=== PATIENT | female | born 1935 | race Caucasian/White ===

== ENCOUNTER → 2018-04-19 | Outpatient (CLI) | payer OTHER, MEDICARE ==
[~2018-04-19] VITALS: Ht 170.2 cm; Wt 63.5 kg
[~2018-04-19] MED LIST: AZOPT OPHTH1 %/10 M1; CALCIUM 500 +1 EAC5; COSOPT PF EYE1 EACH OPHTHALMIC; FISH OIL 1,001000 M2 PO; FISHOIL; GLUCOSAMINE CH1 EAC7 PO; GLUCOSAMINE HC500 MG; LIPITOR 20 MG T20 M1 PO; LUMIGAN2.5 M1 OP; NORVASC2.5 MG PO; OCUVITE SOFTGE1 EAC1 PO; TRAVATAN 0.004%5 ML; TUMS CHEWA500 MG/11; VITAMIN D1000 UNI1 PO; ZOCOR 20 MG TAB20 M1
--- NOTE | ~2018-04-19 | P ---
[facility] [place] [address] PROCEDURE REPORT Name: HARRY MORENO Room #: REG [facility]#: [id number] Admission: 04/19/18 Attend Phys: Miguel Lai Discharge: Date of : 39 Report #: [id number] THIS REPORT FOR: //name// CC: Miguel Shabazz MD DATE OF SERVICE: 04/19/2018 PROCEDURE PERFORMED: Colonoscopy. HISTORY OF PRESENT ILLNESS: The patient is an 83-year-old female with a history of colon polyps 10 years ago, here for routine followup. She also has a family history of colon cancer in her father. She denies any symptoms. DESCRIPTION OF PROCEDURE: The risks and benefits of the procedure were explained to the patient, those risks including but not limited to bleeding, perforation, and the risk of sedation. She understood these risks and gave informed consent. Sedation was given using propofol per anesthesia. Next, a digital rectal exam was initially performed, which was normal. Next, using a standard Olympus colonoscope, the scope was placed in the patient's anus and advanced under direct vision to the cecum. The overall prep was excellent. The cecum and ileocecal valve were normal in appearance. The ascending, transverse, descending and sigmoid colon were all normal. The rectal mucosa was normal. On retroflexion, small nonbleeding internal hemorrhoids were noted. Otherwise, normal colonoscopy. The scope was then withdrawn and the procedure terminated. The patient tolerated the procedure well. IMPRESSION: 1. Small internal hemorrhoids. 2. Otherwise, normal colonoscopy. RECOMMENDATIONS: No further colonoscopy is needed due to the patient's age. Thank you for allowing me to participate in her care. <ELECTRONICALLY SIGNED> By: Miguel Osman MD 04/19/18 1229 0938 1021 Miguel Osman MD /nt
== END | disposition home or self-care (01) ==
LOC: GI 07:31
DX: Z12.11 Encounter for screening for malignant neoplasm of colon (principal); K64.8 Other hemorrhoids; Z86.010 Personal history of colon polyps; Z80.0 Family history of malignant neoplasm of digestive organs; I10 Essential (primary) hypertension; E78.5 Hyperlipidemia, unspecified; Z98.41 Cataract extraction status, right eye; Z98.42 Cataract extraction status, left eye; Z98.890 Other specified postprocedural states; Z79.899 Other long term (current) drug therapy
CPT/HCPCS: 62110; 62900

== ENCOUNTER → 2018-05-17 | Outpatient (CLI) | payer OTHER, MEDICARE | LOC: NUC 13:18 | DX: Z12.31 Encounter for screening mammogram for malignant neoplasm of breast (principal); M81.0 Age-related osteoporosis without current pathological fracture; Z78.0 Asymptomatic menopausal state ==

== ENCOUNTER → 2018-05-25 | Outpatient (CLI) | payer OTHER, MEDICARE | LOC: RAD 00:34 | DX: N63.11 Unspecified lump in the right breast, upper outer quadrant (principal); R92.2 Inconclusive mammogram; N64.89 Other specified disorders of breast ==

== ENCOUNTER → 2018-06-01 | Outpatient (CLI) | payer OTHER, MEDICARE ==
--- NOTE | ~2018-06-01 | PATH ---
Formerly [facility] [address] [place] [address] PATHOLOGY RPT PROCEDURE Name: TIFFANIEHARRY Eileen Room #: REG MEL Mustafa#: [id number] Admission: 06/01/18 Date of : 39 Discharge: Report #: [id number] Path Case #: [id number] [facility] Accession Number: [id number] . 01 Material submitted: . RIGHT BREAST MASS 1100 2CM . 01 Clinician provided ICD-10: N63.10 . 01 Clinical history: . Breast mass . 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 . (SHA:at;06/03/2018) QTA/06/03/2018 . 02 Comment: This case was also reviewed by Dr. Charis Renteria. Suggest clinical correlation as only block A3 revealed the lesion; block A1 and A2 reveal only fat. The biopsy may not be access representative. (SHA:at;06/03/2018) . 02 Electronically signed: . Micheal Pruett MD, Pathologist NPI- [id number] . 01 Gross description: . Received in formalin labeled "Harry Ware, right breast 11:00 2 cm," are multiple needle cores of yellow-rizo fibrofatty tissue measuring 2.1 x 1.7 x 0.6 cm in aggregate dimensions. The tissue submitted in its entirety in cassette A1 through A3. The cold ischemic time is 5 minutes. The total formalin fixation time is 32 hours and 30 minutes. (TSD; 06/01/2018) TOB/TOB . 02 Pathologist provided ICD-10: N60.31 . 02 CPT . 779734 Specimen Comment: A courtesy copy of this report has been sent to Specimen Comment: [phone], [place] [address] PATHOLOGY RPT PROCEDURE Name: HARRY WARE Room #: REG [facility]#: [id number] Admission: 06/01/18 Date of : 39 Discharge: Report #: [id number] Path Case #: [id number] Specimen Comment: Report sent to / DR ARRIOLA Performed at: 01 [facility] [place] [address], [place], [place] [address] MD Denny Ely MD Phone: [phone] Performed at: [address] [id number] MD Kari Schilling MD Phone: [phone]
== END | disposition home or self-care (01) ==
LOC: ULTRA 04:01
DX: N60.31 Fibrosclerosis of right breast (principal); R92.1 Mammographic calcification found on diagnostic imaging of breast; Z79.899 Other long term (current) drug therapy; Z98.890 Other specified postprocedural states

== ENCOUNTER → 2020-10-18 | Outpatient (CLI) | payer OTHER, MEDICARE ==
[~2020-10-18] MED LIST changes: +MELATONIN5 MG SUBLING; +STOOL SOFTENER100 M1 PO; +VITAMIN E1000 UNIT PO; +ZIOPTAN 0.00151 EACH OTIC
== END ==
LOC: LAB 13:55
PROVIDERS: ATTEND Family Medicine
DX: R05 Cough (principal); Z20.822 Contact with and (suspected) exposure to COVID-19

== ENCOUNTER 2020-10-20 09:28 | Inpatient (IN) | payer OTHER, MEDICARE ==
[2020-10-20] VITALS (11 sets, daily range): BP systolic 112–156; BP diastolic 62–88
[~2020-10-20] VITALS: Ht 167.6 cm; Wt 54.3 kg
[~2020-10-20 09:28] MED LIST changes: -MELATONIN5 MG SUBLING; -STOOL SOFTENER100 M1 PO; -VITAMIN E1000 UNIT PO; -ZIOPTAN 0.00151 EACH OTIC
[2020-10-20] MEDS ORDERED: ZIOPTAN 0.00151 EACH OTIC (09:43)
[2020-10-20] MEDS ORDERED: VITAMIN E1000 UNIT PO (09:43)
[2020-10-20] MEDS ORDERED: STOOL SOFTENER100 M1 PO (09:44)
[2020-10-20] MEDS ORDERED: MELATONIN5 MG SUBLING (09:44)
[2020-10-20 10:09] LABS: ABSOLUTE NEUTROPHILS 3.3 thou/uL (1.4-8.2); BASOPHILS 0.8 % (0.0-2.0); EOSINOPHILS 0.5 % (0.0-3.0); HEMATOCRIT 38.1 % (37.0-47.0); HEMOGLOBIN 12.8 gm/dL (12.0-15.0); LYMPHOCYTES 16.3 % (24.0-44.0); MCH 31.5 pg (26.0-34.0); MCHC 33.7 g/dL (28.0-37.0); MCV 93.4 fL (80.0-100.0); MONOCYTES 11.4 % (1.0-8.0); PLATELET COUNT 224 thou/uL (150-400); RBC 4.08 mil/uL (4.20-5.00); RDW 13.1 % (10.5-14.5); WBC 4.7 thou/uL (4.0-11.0)
[2020-10-20 10:12] LABS: ANION GAP 10 mmol/L (7-16); BUN 10 mg/dL (7-18); CALCIUM 8.1 mg/dL (8.5-10.1); CHLORIDE 90 mmol/L (98-107); CO2 25 mmol/L (21-32); CREATININE 0.7 mg/dL (0.6-1.0); GLUCOSE 127 mg/dL (74-106); POTASSIUM 3.3 mmol/L (3.5-5.1); SODIUM 125 mmol/L (136-145)
[2020-10-20 10:22] LABS: ALBUMIN 3.6 g/dL (3.4-5.0); SGOT 52 U/L (15-37); SGPT 103 U/L (14-59); TOTAL BILIRUBIN 0.6 mg/dL (0.2-1.0); TOTAL PROTEIN 7.1 g/dL (6.4-8.2); TROPONIN-I <0.06 ng/mL (<0.06)
--- NOTE | 2020-10-20 19:51 | NUR ---
PT CARE ASSUMED 1515. ASSESSMENTS CHARTED. MEDICATIONS CHARTED. RAC, GOOD RETURN. SINUS ARRHYTHMIA 1ST DEG AV. COVID PERFORMED X 2. O2 2LPM NC. WALKS STEADY WITH WALKER, PT'S OWN WALKER.
[2020-10-21] VITALS (14 sets, daily range): BP systolic 89–117; BP diastolic 58–76
[2020-10-21 02:01] LABS: CREATININE 0.6 mg/dL (0.6-1.0); POTASSIUM 3.1 mmol/L (3.5-5.1)
[2020-10-21 02:05] LABS: ALBUMIN 3.1 g/dL (3.4-5.0); PHOSPHORUS 2.7 mg/dL (2.5-4.9)
--- NOTE | 2020-10-21 04:32 | NUR ---
2044 UP TO BATHROOM WITH WALKER. HR ELEVATED 130-150'S, STAT EKG SHOWS AFIB RVR. 2129 DR. DAS NOTIFIED AND ORDERS RECIEVED. 2229 CARDIZEM GTT STARTED AND BOLUS GIVEN. VSS. O2 SAT 88% ON 2L/NC. INCREASED TO 3L/NC NOW 92%. 429 HR NOW 89-110'S. CARDIZEM AT 10 ML/HR. BP 110/64. SLEPT PART OF SHIFT. DENIES COMPLAINTS OF CHEST PAIN OR SHORTNESS OF AIR. WORKING ON GOALS AND PLAN OF CARE FOR NOC. NOT PROGRESSING TOWARDS DISCHARGE GOALS AT THIS TIME. CONTINUE TO MONITOR HR AND BP FREQUENTLY. CONTINUE TO ASSES.
--- NOTE | 2020-10-21 16:29 | 2DMMODE ---
[facility] [address] [place] [address] 2 D/M-MODE ECHOCARDIOGRAM Name: TIFFANIEHARRY Eileen Room #: 205-P ADM IN M.R.#: [id number] Admission: 10/20/20 Attend Phys: Nieves Merino Discharge: Date of : 37 Report #: [id number] THIS REPORT FOR: cc: Jv Shabazz MD, Rene P. MD Lammoglia, Francisco J. MD ~ APPROVED REPORT Study performed: 10/21/2020 10:14:21 EXAM: Comprehensive 2D, Doppler, and color-flow Echocardiogram Patient Location: Echo lab Room #: [facility] Status: stat BSA: 1.67 HR: 102 bpm BP: 117/68 mmHg Other Information Study Quality: Good Indications Congestive Heart Failure 2D Dimensions IVSd: 12.61 (7-11mm) LVOT Diam: 19.10 (18-24mm) LVDd: 33.62 mm PWd: 10.01 (7-11mm) Ascending Ao: 33.67 (22-36mm) LVDs: 23.51 (25-40mm) Left Atrium: 40.45 (27-40mm) Aortic Root: 31.08 mm LV Single Plane 4CH: 44.09 % Volumes Left Atrial Volume (Systole) Single Plane 4CH: 67.80 mL Single Plane 2CH: 39.13 mL Biplane LA Volume: 56.00 mL LA ESV Index: 33.00 mL/m2 Aortic Valve AoV Peak Luan.: 1.36 m/s AO Peak Gr.: 7.89 mmHg LVOT Max P.02 mmHg LVOT Max V: 1.00 m/s SEAN Vmax: 2.11 cm2 [facility] [address] [address] 2 D/M-MODE ECHOCARDIOGRAM Name: TIFFANIEHARRY L Room #: 205-[facility] IN [facility].#: [id number] Admission: 10/20/20 Attend Phys: Nieves Patten Mar Discharge: Date of : 37 Report #: [id number] Mitral Valve ERO: 75.59 mm2 E/A Ratio: 1.1 MV Decel. Time: 188.68 ms MV E Max Luan.: 1.22 m/s MV A Luan.: 1.11 m/s MV Max Luan.: 4.95 m/s MR Radius: 0.76 cm MV PHT: 54.72 ms MR Als. Luan: 1.02 m/s MR Flow: 374.12 mL/s Pulmonary Valve PV Peak Luan.: 0.59 m/s PV Peak Gr.: 1.41 mmHg AL End Vmax: 0.72 m/s Tricuspid Valve TR Peak Luan.: 2.81 m/s RAP Estimate: 15.00 mmHg TR Peak Gr.: 31.60 mmHg RVSP: 47.00 mmHg Left Ventricle The left ventricle is normal size. There is normal LV segmental wall motion. There is normal left ventricular wall thickness. Left ventricular systolic function is normal. The left ventricular ejection fraction is within the normal range. LVEF is 50-55%. This study is not technically sufficient to allow evaluation of the LV diastolic function. Right Ventricle The right ventricle is normal size. The right ventricular systolic function is normal. Atria Left atrium is moderately dilated. Right atrium is dilated. Aortic Valve The aortic valve is normal in structure. Trace to mild aortic regurgitation. There is no aortic valvular stenosis. Mitral Valve The mitral valve is normal in structure. Moderate mitral regurgitation. No evidence of mitral valve stenosis. Tricuspid Valve The tricuspid valve is normal in structure. Moderate tricuspid regurgitation. [facility] [address] [place] [address] 2 D/M-MODE ECHOCARDIOGRAM Name: HARRY MORENO Room #: 205-P [facility] IN .R.#: [id number] Admission: 10/20/20 Attend Phys: Nieves Dahl Discharge: Date of : 37 Report #: [id number] Pulmonic Valve The pulmonary valve is normal in structure. Trace to mild pulmonic regurgitation. Great Vessels The aortic root is normal in size. IVC is normal in size and collapses >50% with inspiration. Pericardium There is no pericardial effusion. Small right pleural effusion. <Conclusion> The left ventricle is normal size. LVEF is 50-55%. Left atrium is moderately dilated. Right atrium is dilated. The aortic valve is normal in structure. Trace to mild aortic regurgitation. The mitral valve is normal in structure. Moderate mitral regurgitation. The tricuspid valve is normal in structure. Moderate tricuspid regurgitation. The pulmonary valve is normal in structure. Trace to mild pulmonic regurgitation. Small right pleural effusion. <ELECTRONICALLY SIGNED> By: Yefri Syed MD 10/21/20 1629 1629 162 Yefri Syed MD /INF
--- NOTE | 2020-10-21 18:05 | NUR ---
PT CARE ASSUMED AT 0700. ASSESSMENTS CHARTED. MEDICATIONS CHARTED. RAC IV. SINUS TACHYCARDIA. COVID NEGATIVE. FLU SWABS TAKEN. CARDIZEM AT 10, WAS AT 15 BUT PT BP DROPPED SO I LOWERED CARDIZEM TO 10 LONG HR IS REASONABLE.
[2020-10-22 00:12] VITALS: BP 121/75
[2020-10-22 03:10] VITALS: BP 124/71
[2020-10-22 06:42] LABS: ALBUMIN 3.3 g/dL (3.4-5.0); CALCIUM 8.3 mg/dL (8.5-10.1); CREATININE 0.7 mg/dL (0.6-1.0); POTASSIUM 3.8 mmol/L (3.5-5.1); TOTAL BILIRUBIN 0.6 mg/dL (0.2-1.0); TOTAL PROTEIN 6.6 g/dL (6.4-8.2)
--- NOTE | 2020-10-22 07:22 | EKG ---
[place] [address] [facility] [place] [address] ELECTROCARDIOGRAM REPORT Name: HARRY MORENO Room #: 205- ADM IN M.R.#: [id number] Admission: 10/20/20 Attend Phys: Nieves Merino Discharge: Date of : 37 Report #: [id number] [facility] ED Test Date: 2020-10-20 Test Time: 09:37:28 Pat Name: HARRY MORENO Department: Room: 205 Gender: F Casing Cooker: SINGH : 1935 Requested By: Rudy Dumont Order Number: [id number] MD: Jun Duran Measurements Intervals [place] Rate: 100 P: 33 AR: 182 QRS: 19 QRSD: 90 T: 20 QT: 390 QTc: 503 Interpretive Statements Sinus tachycardia Atrial premature complexes Low voltage, extremity and precordial leads Consider anterior infarct No previous ECG available for comparison Electronically Signed On 10-22-2020 7:22:02 CDT by Jun Duran [email or web address] <ELECTRONICALLY SIGNED> By: Jun Duran MD, [facility] 10/22/20 0722 0937 6 Jun Duran MD, FACC /EPI
--- NOTE | 2020-10-22 07:23 | EKG ---
[place] [address] [facility] [place] [address] ELECTROCARDIOGRAM REPORT Name: HARRY MORENO Room #: 205- ADM IN M.R.#: [id number] Admission: 10/20/20 Attend Phys: Nieves Merino Discharge: Date of : 37 Report #: [id number] [facility] Test Date: 2020-10-20 Test Time: 21:24:20 Pat Name: HARRY MORENO Department: Room: 205 P Gender: F Airport Attendant: terrell SON : 1935 Requested By: Nieves Merino Order Number: [id number] MD: Jun Duran Measurements Intervals [place] Rate: 147 P: [place]: QRS: 16 QRSD: 78 T: 5 QT: 320 QTc: 501 Interpretive Statements Atrial fibrillation with rapid V-rate ST depression, probably rate related No previous ECG available for comparison Electronically Signed On 10-22-2020 7:23:42 CDT by Jun Durna [email or web address] <ELECTRONICALLY SIGNED> By: Jun Duran MD, [facility] 10/22/20 0723 23 23 Jun Duran MD, FACC /EPI
--- NOTE | 2020-10-22 07:46 | NUR ---
0059 PATIENT SLEEPING WITHOUT COMPLAINTS. TELEMETRY SHOWS AFIB WITH BURST OF VT 20 BEATS VS SVT. RAJAN LEAF SUCKER OPERATOR NOTIFIED ON FLOOR AND REVIEWED STRIP. TREATED ELECTRLYTES AND LABS ORDERED FOR AM. 0310 PATIENT AWOKE WITH COMPLAINTS OF FEELING ANXIOUS. NOTIFIED LEAF SUCKER OPERATOR AND ORDERS RECIEVED. 0500 STATES THE PILL HELPED SOME BUT NOT MUCH. TYLENOL GIVEN FOR GENERALIZED DISCOMFORT. 0630 UP TO COMODE AND VOIDED SMALL AMOUNT. STATES FEELS IS NOT EMPTYING BLADDER. BLADDER SCAN SHOWS 53CC IN BLADDER PAST VOID. NOTIFIED LEAF SUCKER OPERATOR AND NO ORDERS RECIEVED. WORKING ON GOALS AND PLAN OF CARE FOR NOC. TELEMETRY SHOW AFIB 70-90. NO FURTHER BURST OF VT. AWAITING LAB RESULTS THIS AM. ASSIST UP PRN. DENIES COMPLAINTS OF SHORTNESS OF AIR OR CHEST PAIN.
[2020-10-22 08:35] VITALS: BP 132/72
[2020-10-22 12:12] VITALS: BP 123/83
--- NOTE | 2020-10-22 13:37 | NUR ---
PT IS AXOX4, PLEASANT. PT DENIES PAIN. PT IS ON 3LNC. PT IS UP STDBY ASST X1 WITH WALKER AND GAIT BELT; PT CAN EXPERIENCE SOA AND SYNCOPE WHEN INITIALLY STANDING UP. NEED TO REINFORCE CALLING FOR ASSISTANCE TO TOILET. DR CHASE CONSULTED, NEPHRO CONSULTED, CARDIOLOGY CONSULTED. CARDIZEM GTT D/C, STARTED ON ORAL RX. RX SODIUM STARTED. POC IS TO CONTINUE TO MONITOR BP/HR, F&E VALUES. LOW FALL PRECAUTIONS IN PLACE. NO CONCERNS AT THIS TIME.
[2020-10-22 15:49] VITALS: BP 140/76
--- NOTE | 2020-10-22 17:45 | NUR ---
met with patient who admits for SOA. Patient resides in home with spouse. She reports steps to basement where laundry/excercise equipt found. Patient uses a walker for ambulation. She has her own walker in room. She does not use oxygen at home. both her and spouse drive. She has no children. Niece in [place] she may ask to assist with cleaning home. PCP Dr Shabazz. casemgt following.
[2020-10-22 19:50] VITALS: BP 131/70
[2020-10-22 20:04] LABS: URINE POTASSIUM-RANDOM* 49.9 mmol/L
[2020-10-23 04:30] VITALS: BP 141/87
[2020-10-23 05:01] LABS: CALCIUM 7.9 mg/dL (8.5-10.1); CREATININE 0.5 mg/dL (0.6-1.0); POTASSIUM 3.6 mmol/L (3.5-5.1)
--- NOTE | 2020-10-23 07:50 | NUR ---
SLEPT MOST OF SHIFT. TELEMETRY SHOWS AFIB RESTING RATES 90-110'S. DOES INCREASE TO 120-130 WHEN UP IN BATHROOM. DENIES SHORTNESS OF AIR OR CHEST PAIN. PLACED ON 2L/NC AT 0430 FOR O2 SAT 85% ON RA, NOW 91%. WORKING ON GOALS AND PLAN OF CARE FOR NOC. PROGRESSING SLOWLY TOWARDS DISCHARGE GOALS. CONTINUE TO ASSES CLOSELY.
[2020-10-23 07:52] VITALS: BP 127/92
--- NOTE | 2020-10-23 10:22 | NUR ---
Note Given: Y Facility List Provided:Y Facility Susan: None chosen at this time Rianna Romero NP dicussed BPCI with this pt 10/22/20
[2020-10-23 11:45] VITALS: BP 114/84
[2020-10-23 15:47] VITALS: BP 105/62
--- NOTE | 2020-10-23 16:32 | NUR ---
FAXED CLINICAL UPDATE RECEIVED CONFIRMATION AND LEFT MSG WITH HAYLEE IN ADM.
--- NOTE | 2020-10-23 17:21 | NUR ---
ASSUMED CARE OF PT AT SHIFT CHANGE. ASSESSMENTS CHARTED. MEDS GIVEN PER OCT. PT A&OX4, NO C/O PAIN. HR NOW STABLE, 80-90S, AFIB. PT ON 2 L NC. SODIUM STILL LOW. POSSIBLE DC TOMORROW IF LABS ARE STABLE. WILL CONTINUE TO MONITOR AND FOLLOW POC.
[2020-10-23 20:03] VITALS: BP 113/66
[2020-10-24 03:55] VITALS: BP 135/88
[2020-10-24 05:29] LABS: ALBUMIN 2.9 g/dL (3.4-5.0); CALCIUM 7.7 mg/dL (8.5-10.1); CREATININE 0.6 mg/dL (0.6-1.0); PHOSPHORUS 3.5 mg/dL (2.5-4.9); POTASSIUM 3.6 mmol/L (3.5-5.1)
[2020-10-24 08:07] VITALS: BP 120/77
[2020-10-24 12:17] VITALS: BP 121/74
[2020-10-24 12:55] VITALS: BP 121/74
[2020-10-24] MEDS ORDERED: ELIQUIS2.5 MG PO (14:59)
[2020-10-24] MEDS ORDERED: METOPROLOL SUCC50 MG PO (15:00)
--- NOTE | 2020-10-24 15:06 | NUR ---
FAXED REFERRAL TO [facility] FOR HOME O2 RECEIVED CONFIRMATION AND SILVINA IN INTAKE IS GOING TO DROP OFF O2 TANK PRIOR TO DC.
[2020-10-24 16:43] LABS: HEMOGLOBIN 12.4 gm/dL (12.0-15.0)
[2020-10-24 16:52] LABS: CALCIUM 8.6 mg/dL (8.5-10.1); POTASSIUM 4.3 mmol/L (3.5-5.1)
[2020-10-24 18:47] VITALS: BP 126/92
--- NOTE | 2020-10-24 19:36 | NUR ---
ASSUMED CARE OF PT AT SHIFT CHANGE. ASSESSMENTS CHARTED. MEDS GIVEN PER OCT. PT A&OX4, NO C/O PAIN OR DISTRESS. CT FOUND BL LRG PLEURAL EFFUSIONS. HR STABLE DURING SHIFT, AFIB CONTINUES. WILL CONTINUE TO MONITOR FOR CHANGES AND FOLLOW POC.
[2020-10-24 19:48] VITALS: BP 110/71
--- NOTE | 2020-10-25 03:39 | NUR ---
ASSESSMENTS CHARTED, MEDS CHARTED GIVEN. PATIENT IN AFIB DURING SHIFT, CONTROLLED. ON 2 LITERS NASAL CANNULA. UP AT CARA WITH WALKER IN ROOM. PRIOR TO SHIFT CHANGE PATIENTS LEFT AC IV INFILTRATED. PATIENT USING A WRAPPED ICE BAG ON LEFT UPPER ARM. PATIENT WAS FOUND TO HAVE BILATERAL PLEURAL EFFUSIONS. CONSULT PLACED WITH IR FOR A THORACENTESIS ONE SIDE AT A TIME. FALL PRECAUTIONS IN PLACE DURING SHIFT.
[2020-10-25 04:02] VITALS: BP 135/71
[2020-10-25 05:57] LABS: ALBUMIN 2.7 g/dL (3.4-5.0); CALCIUM 7.9 mg/dL (8.5-10.1); CREATININE 0.6 mg/dL (0.6-1.0); PHOSPHORUS 3.5 mg/dL (2.5-4.9); POTASSIUM 3.5 mmol/L (3.5-5.1)
[2020-10-25 07:38] VITALS: BP 125/84
--- NOTE | 2020-10-25 09:02 | NUR ---
FAXED REFERRAL TO [facility] SPOKE WITH CIRILO IN ADM SHE CAN ACCEPT AT DC.
[2020-10-25 10:50] LABS: INR 1.1; PROTIME 11.4 Seconds (9.3-11.4)
[2020-10-25 11:17] VITALS: BP 126/62
[2020-10-25 15:12] LABS: BF COMMENTS LT CHEST FLUID; BF NUCLEATED CELLS 178 /mm3; BF RBC 257 /mm3; CLARITY CLEAR; COLOR YELLOW; SOURCE PERICARDIAL; TOTAL VOLUME 18 mL
[2020-10-25 15:16] VITALS: BP 93/56
[2020-10-25 15:40] LABS: BF MACROPHAGE 13 %; BF NEUTROPHILS 23 %
[2020-10-25 20:17] VITALS: BP 97/52
--- NOTE | 2020-10-26 03:26 | NUR ---
ASSESSMENTS CHARTED, MEDS CHARTED GIVEN. PATIENT IN AFIB AGAIN. HEART RATE IN THE 40'S AT START OF SHIFT, RETURNED TO THE 70'S BY MID SHIFT. ON 2 LITERS OXYGEN. UP STANDBY WITH WALKER. PATIENT HAD THORACENTESIS TODAY ON LEFT SIDE. 1 LITER OF FLUID REMOVED. PLAN OF CARE IS FOR POSSIBLE THORACENTESIS ON RIGHT SIDE TODAY, PLAN FOR HOME HEALTH ON DISCHARGE. FALL PRECAUTIONS IN PLACE DURING SHIFT.
[2020-10-26 04:43] VITALS: BP 111/75
[2020-10-26 05:31] LABS: ABSOLUTE NEUTROPHILS 3.7 thou/uL (1.4-8.2); BASOPHILS 0.6 % (0.0-2.0); HEMATOCRIT 33.6 % (37.0-47.0); HEMOGLOBIN 11.3 gm/dL (12.0-15.0); LYMPHOCYTES 22.9 % (24.0-44.0); MCH 31.4 pg (26.0-34.0); MCHC 33.6 g/dL (28.0-37.0); MCV 93.5 fL (80.0-100.0); MONOCYTES 11.5 % (1.0-8.0); PLATELET COUNT 223 thou/uL (150-400); RDW 13.1 % (10.5-14.5); WBC 5.8 thou/uL (4.0-11.0)
[2020-10-26 05:55] LABS: ALBUMIN 2.5 g/dL (3.4-5.0); CALCIUM 7.9 mg/dL (8.5-10.1); CREATININE 0.8 mg/dL (0.6-1.0); POTASSIUM 3.8 mmol/L (3.5-5.1)
[2020-10-26 06:07] LABS: MAGNESIUM 1.8 mg/dL (1.8-2.4)
[2020-10-26 08:00] VITALS: BP 115/60
[2020-10-26 11:07] LABS: BODY FLUID ALBUMIN 1.4 g/dL (Not Estab.); BODY FLUID AMYLASE 12 U/L (()); BODY FLUID GLUCOSE 127 mg/dL (()); BODY FLUID LDH 96 IU/L (())
[2020-10-26 12:00] VITALS: BP 98/55
[2020-10-26 13:03] LABS: CLARITY CLEAR; COLOR YELLOW; SOURCE PLEURAL; TOTAL VOLUME 50 mL
[2020-10-26 13:22] LABS: BF NUCLEATED CELLS 254 /mm3; BF RBC 568 /mm3
[2020-10-26 13:59] LABS: SOURCE CHEST
[2020-10-26 14:08] LABS: BF MACROPHAGE 65 %; BF NEUTROPHILS 11 %
--- NOTE | 2020-10-26 16:11 | NUR ---
Pt getting tapped again today. Possible weekend dc if weaned off o2 and heart rate better. [facility] aware. They will need orders faxed to [phone] and their oncall rn notified at dc [phone]. Home o2 referral for jaylene on hold as pt may not need. Will follow.
[2020-10-26 17:36] VITALS: BP 71/50
[2020-10-26 18:35] VITALS: BP 96/45
--- NOTE | 2020-10-26 20:02 | NUR ---
RECEIVED PT'S CARE AROUND 0730; PT. ON BED; ALERT; DURING AM ASSESSMENT AOX4; NO C/O PAIN; AM MEDICATIONS GIVEN; ORDERS ON PLACED FOR THORACENTESIS; GONE FOR PROCEDURE DURING AM; PER REPORT FLUID PULLED OUT FROM R. SIDE; 950 ML; TOLERATED WELL; BACK FROM PROCEDURE; NO C/O PAIN; DURING THE AFTERNOON HR BETWEEN 40-60s; NO C/O SOB OR DIZZINESS; MONITORING; DURING THE AFTERNOON SBP ON THE 90s; DR. SNYDER NOTIFED; NO NEW ORDERS MONITORING; PT. C/O DIARRHEA; PHYSICIAN NOTIFIED; ORDERS ON PLACED; O2 TITRATE TO RA DURING THE EVENING; MONITORING; PASSED ON REPORT; ASSESSMENT CHARGED; FOLLOWING POC; PASSED ON REPORT;
[2020-10-26 21:40] VITALS: BP 114/68
[2020-10-27 03:29] VITALS: BP 118/71
[2020-10-27 07:35] VITALS: BP 137/72
[2020-10-27] MEDS ORDERED: LASIX 40 MG TAB40 M1 PO (10:15)
[2020-10-27] MEDS ORDERED: ATENOLOL 50MG T50 M1 PO (10:15)
[2020-10-27] MEDS ORDERED: ADULT LOW DOSE81 MG PO (10:15)
[2020-10-27] MEDS ORDERED: ELIQUIS2.5 MG PO (10:15)
[2020-10-27] MEDS ORDERED: VERAPAMIL E.R240 M1 PO (10:15)
[2020-10-27] MEDS ORDERED: ATORVASTATIN CA10 MG PO (10:15)
[2020-10-27 11:20] VITALS: BP 113/64
[2020-10-27 15:40] VITALS: BP 96/51
[2020-10-27 16:05] VITALS: BP 121/74
[2020-10-28 12:15] LABS: BODY FLUID ALBUMIN 1.2 g/dL (Not Estab.); BODY FLUID AMYLASE 13 U/L (()); BODY FLUID GLUCOSE 107 mg/dL (()); BODY FLUID LDH 107 IU/L (()); BODY FLUID PROTEIN 1.8 g/dL (())
--- NOTE | 2020-10-29 13:55 | NUR ---
PT DISCHARGED OVER THE WEEKEND AND THE DC ORDERS/SUMMARY WAS NOT RECEIVED BY [facility] FAXED ORDERS SPOKE WITH CIRILO IN INTAKE SHE RECEIVED ORDERS AND WILL ARRANGE VISITS WITH PT.
[2020-10-29 15:47] LABS: SOURCE CHEST
--- NOTE | 2020-10-29 19:06 | PATH ---
[facility] [address] [place] [address] PATHOLOGY RPT PROCEDURE Name: HARRY MORENO Room #: 205-P [facility] IN .R.#: [id number] Admission: 10/20/20 Date of : 39 Discharge: 10/27/20 Report #: [id number] Path Case #: [id number] Note [facility] Accession Number: [id number] TESTS RESULT FLAG UNITS REF RANGE LAB Clinician Provided Cytology Information No. of containers..01 Other (Miscellaneous) Source: LT PLEURAL FLUID DIAGNOSIS: LT PLEURAL FLUID NEGATIVE FOR MALIGNANT EPITHELIAL CELLS. MESOTHELIAL CELLS ARE PRESENT. THIS INTERPRETATION INCLUDES EVALUATION OF A CELL BLOCK. Pathologist ICD10: 02 J90 Signed out by: 02 Kari Schilling MD, Pathologist NPI- [id number] Performed by: 01 Odessa Gibbons Crop Insurance Claims Adjuster ([facility]) Gross description: 01 5ML, YELLOW, 1TP 1CB /LCS 10/26/2020 0822 Local FLAG LEGEND: L-Low Normal,H-High Normal,LL-Alert Low,HH-Alert High <-Panic Low,>-Panic High,A-Abnormal,AA-Critical Abnormal Performed at: [address] [place] [address] Micheal Pruett MD, [address] [address] Kari Schilling MD, Performed at: [address], [place], [place] [id number] MD Micheal Pruett MD Phone: [phone]
--- NOTE | 2020-10-30 13:08 | PATH ---
[facility] [address] [place] [address] PATHOLOGY RPT PROCEDURE Name: HARRY MORENO Room #: 205-P [facility] IN ..#: [id number] Admission: 10/20/20 Date of : 39 Discharge: 10/27/20 Report #: [id number] Path Case #: [id number] Note [facility] Accession Number: [id number] TESTS RESULT FLAG UNITS REF RANGE LAB Clinician Provided Cytology Information No. of containers..01 Other (Miscellaneous) Source: RIGHT PLEURAL FLUID DIAGNOSIS: 02 RIGHT PLEURAL FLUID NEGATIVE FOR MALIGNANT EPITHELIAL CELLS. MESOTHELIAL CELLS ARE PRESENT. THIS INTERPRETATION INCLUDES EVALUATION OF A CELL BLOCK. Pathologist ICD10: 02 J81.0 Signed out by: 02 Kari Schilling MD, Pathologist NPI- [id number] Performed by: Ryan Marcum, Culvert Installer ([facility]) Gross description: 01 15ML, CLOUDY YELLOW, 1 TP 1 CB /LCS 10/27/2020 0934 Local FLAG LEGEND: L-Low Normal,H-High Normal,LL-Alert Low,HH-Alert High <-Panic Low,>-Panic High,A-Abnormal,AA-Critical Abnormal Performed at: [address] [place] [address] Micheal Pruett MD, [address] [address] Kari Schilling MD, Specimen Comment: A courtesy copy of this report has been sent to [phone] Specimen Comment: [phone], Specimen Comment: Report sent to ,DR WALKER / DR ARRIOLA Performed at: [address], [place], [place] [id number] MD Micheal Pruett MD Phone: [phone]
== END 2020-10-27 17:21 | disposition home health service (06) | DRG 291 ==
LOC: ER 09:28 → EROBS 11:15 → 2N 11:15
PROVIDERS: Emergency Medicine; Internal Medicine; Internal Medicine Nephrology; ADMIT Hospitalist; ATTEND Hospitalist
PROC: 0W9B3ZZ Drainage of Left Pleural Cavity, Percutaneous Approach (ICD-10-PCS; principal; 2020-10-25)
PROC: 0W993ZZ Drainage of Right Pleural Cavity, Percutaneous Approach (ICD-10-PCS; 2020-10-26)
DX: I11.0 Hypertensive heart disease with heart failure (principal); J96.01 Acute respiratory failure with hypoxia; I50.31 Acute diastolic (congestive) heart failure; I47.1 Supraventricular tachycardia; E22.2 Syndrome of inappropriate secretion of antidiuretic hormone; E44.0 Moderate protein-calorie malnutrition; I48.20 Chronic atrial fibrillation, unspecified; Z68.1 Body mass index [BMI] 19.9 or less, adult; J91.8 Pleural effusion in other conditions classified elsewhere; I50.9 Heart failure, unspecified; E78.5 Hyperlipidemia, unspecified; R74.01 Elevation of levels of liver transaminase levels; M81.0 Age-related osteoporosis without current pathological fracture; E87.6 Hypokalemia; E83.42 Hypomagnesemia; R53.81 Other malaise; I08.1 Rheumatic disorders of both mitral and tricuspid valves; E83.51 Hypocalcemia; R07.89 Other chest pain; Z20.822 Contact with and (suspected) exposure to COVID-19; Z98.42 Cataract extraction status, left eye; Z79.01 Long term (current) use of anticoagulants; Z79.82 Long term (current) use of aspirin; Z98.41 Cataract extraction status, right eye; Z79.899 Other long term (current) drug therapy
CPT/HCPCS: 10081

== ENCOUNTER → 2020-11-09 | Outpatient (CLI) | payer OTHER, MEDICARE ==
[~2020-11-09] MED LIST changes: +ADULT LOW DOSE81 MG PO; +ATENOLOL 50MG T50 M1 PO; +ATORVASTATIN CA10 MG PO; +ELIQUIS2.5 MG PO; +LASIX 40 MG TAB40 M1 PO; +MELATONIN5 MG SUBLING; +METOPROLOL SUCC50 MG PO; +STOOL SOFTENER100 M1 PO; +VERAPAMIL E.R240 M1 PO; +VITAMIN E1000 UNIT PO; +ZIOPTAN 0.00151 EACH OTIC
== END ==
LOC: RAD 12:13
PROVIDERS: ATTEND Family Medicine
DX: J90 Pleural effusion, not elsewhere classified (principal); I51.7 Cardiomegaly; J98.11 Atelectasis

== ENCOUNTER → 2020-11-27 | Outpatient (CLI) | payer OTHER, MEDICARE | LOC: SJCVCIMAG 09:08 | PROVIDERS: ATTEND Internal Medicine | DX: I49.3 Ventricular premature depolarization (principal); I48.91 Unspecified atrial fibrillation; R07.89 Other chest pain; R06.00 Dyspnea, unspecified; E78.5 Hyperlipidemia, unspecified; I11.0 Hypertensive heart disease with heart failure; I50.9 Heart failure, unspecified; Z79.899 Other long term (current) drug therapy ==

== ENCOUNTER 2020-12-03 12:36 | Observation (INO) | payer OTHER, MEDICARE ==
[~2020-12-03] VITALS: Ht 167.6 cm; Wt 64.0 kg
[2020-12-03 12:30] VITALS: BP 131/82
[2020-12-03] MEDS ORDERED: TOPROL XL50 MG (12:54)
[2020-12-03] MEDS ORDERED: KLOR-CON M2020 MEQ PO (12:54)
[2020-12-03] MEDS ORDERED: METAMUCIL660 GM PO (12:55)
--- NOTE | 2020-12-03 13:25 | NUR ---
PT PRESENTS TO 2N/CCU A DIRECT ADMIT FROM DR TAYLOR'S OFFICE. PT C/O OF SOB [id number]. IV PLACED IN PATIENT, ADMISSION DETAILS STARTED. AWAITING AMIO GTT FROM PHARM. WILL CONTINUE TO MONITOR AND FOLLOW POC.
[2020-12-03 14:56] LABS: HEMATOCRIT 36.1 % (37.0-47.0); MCHC 33.3 g/dL (28.0-37.0); MCV 93.1 fL (80.0-100.0); RBC 3.88 mil/uL (4.20-5.00); WBC 4.4 thou/uL (4.0-11.0)
[2020-12-03 15:17] LABS: ALBUMIN 3.2 g/dL (3.4-5.0); CALCIUM 8.4 mg/dL (8.5-10.1); CREATININE 0.7 mg/dL (0.6-1.0); POTASSIUM 3.1 mmol/L (3.5-5.1); TOTAL BILIRUBIN 0.6 mg/dL (0.2-1.0)
[2020-12-03 15:23] LABS: CHOLESTEROL 126 mg/dL (<200); HDL CHOLESTEROL 46 mg/dL (>40); LDL CHOLESTEROL 71 mg/dL (<100); TC:HDL 2.7 Ratio (Not establshd); TRIGLYCERIDE 48 mg/dL (<150); VLDL 10 mg/dL (<40)
--- NOTE | 2020-12-03 15:38 | NUR ---
PT RESTING. ASSESSMENT UNCHANGED. AMIO GTT REMAINS RUNNING. PTS RATE HAS DECREASED HOWEVER REMAINS IN AFIB. PT STATES SHE FEELS RELIEF NOW THAT HER RATE HAS SLOWED DOWN. PT STATES SHE IS LESS SOB WHEN AMBULATING TO THE RESTROOM. VSS. WILL CONTINUE TO MONITOR AND FOLLOW POC.
[2020-12-03 16:00] VITALS: BP 117/86
[2020-12-03 20:15] VITALS: BP 132/90
[2020-12-04 00:05] VITALS: BP 127/95
[2020-12-04 04:45] VITALS: BP 130/98
--- NOTE | 2020-12-04 04:52 | NUR ---
ASSESSMENTS CHARTED, MEDS CHARTED GIVEN. PATIENT ON AMIODARONE DRIP DURING SHIFT. PATIENT STILL IN AFIB ON TELELEMETRY. PATIENT HAS BEEN NPO SINCE MIDNIGHT FOR POSSIBLE CARDIOVERSION THIS MORNING. DENIES PAIN. FALL PRECAUTIONS IN PLACE DURING SHIFT.
[2020-12-04 07:30] VITALS: BP 124/90
--- NOTE | 2020-12-04 09:14 | NUR ---
ASSUMED PT CARE AT 0700. PT RESTING AT THIS TIME. PT ASSESSMENT PERFORMED CHARTED. VSS. WILL CONTINUE TO MONITOR. UNSURE IF PATIENT WILL BE GOING FOR A CARDIOVERSON TODAY WITH DR TAYLOR. AWAITING FINAL DECISION. WILL CONTINUE TO FOLLOW POC.
--- NOTE | 2020-12-04 10:21 | NUR ---
pt preparing for laboratory miller.
[2020-12-04] MEDS ORDERED: AMIODARONE HCL400 MG PO ×2 (14:02→14:03)
[2020-12-04 16:17] VITALS: BP 130/98
== END 2020-12-04 16:47 | disposition home or self-care (01) ==
LOC: 2N 12:36
PROVIDERS: Nurse Practitioner; ADMIT Internal Medicine; ATTEND Internal Medicine
DX: I48.0 Paroxysmal atrial fibrillation (principal); I10 Essential (primary) hypertension; E78.5 Hyperlipidemia, unspecified; Z79.82 Long term (current) use of aspirin; Z79.01 Long term (current) use of anticoagulants; Z79.899 Other long term (current) drug therapy

== ENCOUNTER → 2020-12-25 | Outpatient (CLI) | payer OTHER, MEDICARE ==
[~2020-12-25] MED LIST changes: +AMIODARONE HCL400 MG PO; +KLOR-CON M2020 MEQ PO; +METAMUCIL660 GM PO; +TOPROL XL50 MG
== END ==
LOC: SJCVC 10:10
PROVIDERS: ATTEND Internal Medicine
DX: I48.91 Unspecified atrial fibrillation (principal); I10 Essential (primary) hypertension; E78.5 Hyperlipidemia, unspecified; H40.9 Unspecified glaucoma; M81.0 Age-related osteoporosis without current pathological fracture; E78.00 Pure hypercholesterolemia, unspecified; Z72.89 Other problems related to lifestyle; Z79.899 Other long term (current) drug therapy; Z79.82 Long term (current) use of aspirin

== ENCOUNTER → 2021-01-29 | Outpatient (CLI) | payer OTHER, MEDICARE ==
[~2021-01-29] MED LIST changes: +ASA81BEC PO; +TOPROL XL50 MG PO
== END ==
LOC: SJCVC 10:20
PROVIDERS: ATTEND Internal Medicine
DX: I48.0 Paroxysmal atrial fibrillation (principal); R53.83 Other fatigue; I10 Essential (primary) hypertension; M81.0 Age-related osteoporosis without current pathological fracture; R06.02 Shortness of breath; E78.00 Pure hypercholesterolemia, unspecified; Z79.82 Long term (current) use of aspirin; Z79.899 Other long term (current) drug therapy

== ENCOUNTER → 2021-02-05 | Outpatient (CLI) | payer OTHER, MEDICARE ==
[~2021-02-05] VITALS: Ht 165.1 cm; Wt 58.1 kg
[2021-02-05 10:12] VITALS: BP 120/61
[2021-02-05 10:35] LABS: HEMATOCRIT 37.6 % (37.0-47.0); HEMOGLOBIN 12.8 gm/dL (12.0-15.0); MCH 31.8 pg (26.0-34.0); MCHC 34.1 g/dL (28.0-37.0); MCV 93.4 fL (80.0-100.0); RBC 4.02 mil/uL (4.20-5.00); RDW 15.8 % (10.5-14.5); WBC 5.7 thou/uL (4.0-11.0)
[2021-02-05 10:45] LABS: CALCIUM 8.8 mg/dL (8.5-10.1); CREATININE 0.9 mg/dL (0.6-1.0); POTASSIUM 4.2 mmol/L (3.5-5.1)
[2021-02-05 10:49] LABS: ALBUMIN 4.1 g/dL (3.4-5.0); TOTAL BILIRUBIN 0.5 mg/dL (0.2-1.0); TOTAL PROTEIN 7.8 g/dL (6.4-8.2)
--- NOTE | 2021-02-05 11:42 | NUR ---
1142 PT RESTING ON COT. SIPPING ON WATER. NO VOICED COMPLAINTS. AT BEDSIDE
== END | disposition home or self-care (01) ==
LOC: CATH 09:18
PROVIDERS: ATTEND Internal Medicine
DX: I48.0 Paroxysmal atrial fibrillation (principal); R53.83 Other fatigue; I10 Essential (primary) hypertension; Z98.890 Other specified postprocedural states; Z79.899 Other long term (current) drug therapy; Z79.01 Long term (current) use of anticoagulants; Z82.3 Family history of stroke; Z82.49 Family history of ischemic heart disease and other diseases of the circulatory system; Z80.0 Family history of malignant neoplasm of digestive organs; Z80.8 Family history of malignant neoplasm of other organs or systems

== ENCOUNTER → 2021-03-05 | Outpatient (CLI) | payer OTHER, MEDICARE | LOC: SJCVC 10:13 | PROVIDERS: ATTEND Internal Medicine | DX: R94.31 Abnormal electrocardiogram [ECG] [EKG] (principal); I44.0 Atrioventricular block, first degree; R00.1 Bradycardia, unspecified; I48.0 Paroxysmal atrial fibrillation; I44.39 Other atrioventricular block; R53.83 Other fatigue; I10 Essential (primary) hypertension; E78.00 Pure hypercholesterolemia, unspecified; E78.5 Hyperlipidemia, unspecified; M81.0 Age-related osteoporosis without current pathological fracture; Z79.82 Long term (current) use of aspirin; Z79.899 Other long term (current) drug therapy ==

== ENCOUNTER → 2021-09-10 | Outpatient (CLI) | payer OTHER, MEDICARE | LOC: SJCVC 10:30 | PROVIDERS: ATTEND Internal Medicine | DX: I48.0 Paroxysmal atrial fibrillation (principal); I10 Essential (primary) hypertension; I38 Endocarditis, valve unspecified; E78.5 Hyperlipidemia, unspecified; E78.00 Pure hypercholesterolemia, unspecified; M81.0 Age-related osteoporosis without current pathological fracture; Z72.89 Other problems related to lifestyle; Z79.82 Long term (current) use of aspirin; Z79.899 Other long term (current) drug therapy ==